=== PATIENT | female | born 1985 | race Two or more races ===

== ENCOUNTER 2020-03-31 08:45 | Emergency (ER) | payer OTHER ==
[~2020-03-31] VITALS: Ht 160 cm; Wt 68.0 kg
[~2020-03-31 08:45] MED LIST: CATAFLAM50 MG PO; MEDROL DOSE PACK PO; ORPH100T PO; SINGULAIR 10MG10 MG; SYMBICORT 80/10.2 GM; TORADOL60 MG IM; VENTOLIN HFA18 GM; VENTOLIN HFA18 GM IH
[2020-03-31] MEDS ORDERED: ZITHROMAX500 MG PO (12:47)
[2020-03-31] MEDS ORDERED: MEDROLPACK PO (12:47)
[2020-03-31] MEDS ORDERED: TUSNEL LIQUID178 ML PO (12:47)
[2020-03-31] MEDS ORDERED: ALBUTEROL2.5 MG/3 M IH (12:49)
== END 2020-03-31 13:01 | disposition home or self-care (01) ==
LOC: ER 08:45
DX: U07.1 COVID-19 (principal)

== ENCOUNTER 2021-01-14 08:55 | Inpatient (IN) | payer OTHER ==
[~2021-01-14] VITALS: Ht 162.6 cm; Wt 74.8 kg
[~2021-01-14 08:55] MED LIST changes: +ALBUTEROL2.5 MG/3 M IH; +MEDROLPACK PO; +TUSNEL LIQUID178 ML PO; +ZITHROMAX500 MG PO
--- NOTE | 2021-01-14 09:07 | NUR ---
PACIENTE FEMENINA ALERTA Y ORIENTADA, REFIERE TENER ASMA DESDE EL RUBEN DE EMERSON. SE COLOCA EN ELAINE PARA SER EVALUADA POR EL MEDICO EN TURNO.
--- NOTE | 2021-01-14 09:18 | NUR ---
PACIENTE EVALUADA POR DR. SERNA. MRSAntony CHAN COLECTA MUESTRAS DE LEONOR RACHEAL ORDENADO Y SIGUIENDO TECNICAS ASEPTICAS. SE ADMINISTRAN MEDICAMENTOS Y SE ORIENTA A PACIENTE ACERCA DE TIPTON INDICACION. SE NOTIFICAN GASES ARTERIALES Y TRATAMIENTO RESPIRATORIO A EQUIPO DE TERAPIA RESPIRATORIA. SE ESPERA POR RESULTADOS DE LABORATORIO.
== END 2021-01-18 20:47 | disposition home or self-care (01) | DRG 203 ==
LOC: ER 08:55 → MEDJ 01-15 01:21
PROVIDERS: ADMIT Internal Medicine; ATTEND Internal Medicine
DX: J45.52 Severe persistent asthma with status asthmaticus (principal); R06.02 Shortness of breath; B34.9 Viral infection, unspecified

== ENCOUNTER 2022-05-12 20:55 | Emergency (ER) | payer OTHER ==
[~2022-05-12] VITALS: Ht 170.2 cm; Wt 84.8 kg
[~2022-05-12 20:55] MED LIST changes: +IPRAT-ALBUT 0.5-3 ML IH
== END 2022-05-13 00:13 | disposition home or self-care (01) ==
LOC: ER 20:55
DX: J45.901 Unspecified asthma with (acute) exacerbation (principal); Z20.822 Contact with and (suspected) exposure to COVID-19

== ENCOUNTER 2023-07-06 07:12 | Emergency (ER) | payer OTHER ==
[~2023-07-06] VITALS: Ht 160 cm; Wt 77.1 kg
[~2023-07-06 07:12] MED LIST changes: +PEPCID AC20 MG PO; +ZOFRAN8 MG PO
[2023-07-06 09:19] LABS: HEMATOCRIT 40.3 % (36.0-45.00); HEMOGLOBIN 13.3 g/dL (12.0-15.00); MEAN CELL VOLUME 87.1 fL (80.00-100.00); MEAN CORPUSCULAR HEMOGLOBIN 28.6 pg (27.00-32.0); MEAN CORPUSCULAR HGB CONC 32.9 g/dl (32.0-36.0); PLATELET COUNT 332 K/uL (150-450); RED BLOOD COUNT 4.63 M/uL (4.00-6.00); RED CELL DISTRIBUTION WIDTH 15.8 % (11.5-14.5)
== END 2023-07-06 10:49 | disposition home or self-care (01) ==
LOC: ER 07:13
PROVIDERS: General Practice
DX: J45.901 Unspecified asthma with (acute) exacerbation (principal); Z20.822 Contact with and (suspected) exposure to COVID-19